=== PATIENT | female | born 1995 | race Caucasian/White ===

== ENCOUNTER 2016-09-04 01:26 | Emergency (ER) | payer OTHER ==
--- NOTE | 2016-09-04 01:56 | ED ---
Raul Shelby Michael, scribed for Kelvin Garza MD on 09/04/16 at 0136 . Altered Mental Status - HPI Summary HPI Summary: 20 y/o female was BIBA to the ED presenting with acute anxiety and panic attack that started tonight per EMS. The pt started having a panic attack in the library when her friend called EMS. She has been drinking caffeine, taking Adderall, and has not slept in 2 days per EMS. She also c/o visual hallucinations. The PMHx is significant for anxiety. - History Of Current Complaint Stated Complaint: POSS OVERDOSE Hx Obtained From: Patient, EMS, Medical Records Onset/Duration: Still Present Timing: Constant Severity Initially: Moderate Severity Currently: Moderate Aggravating Factor(s): Other - caffeine/decreased sleep Alleviating Factor(s): Nothing Associated Signs And Symptoms: Negative: Negative - panic attack, anxiey, visual hallucinations - Allergies/Home Medications Home Medications: Home Medications Escitalopram Oxalate [Lexapro] 15 mg PO DAILY 09/04/16 [History Confirmed ] Trazodone HCl 50 mg PO QAM PRN 09/04/16 [History Confirmed 09/04/16] PMH/Surg Hx/FS Hx/Imm Hx Psychiatric History: Reports: Hx Anxiety, Other Psychiatric Issues/Disorders - panic attacks - Family History Known Family History: Positive: Unknown - patient unable to note FHx - Social History Occupation: Student Lives: Alone Review of Systems Negative: Fever Positive: Anxious, Other - visual hallucinations All Other Systems Reviewed And Are Negative: Yes Physical Exam Triage Information Reviewed: Yes Vital Signs Reviewed: Yes Completion Of Physical Exam Limited Due To: Extremis Appearance: Positive: Well-Nourished - very restless Skin: Positive: Warm Eyes: Positive: MARIAELENA ENT: Positive: Hearing grossly normal Neck: Positive: Supple Respiratory/Lung Sounds: Positive: Breath Sounds Present Cardiovascular: Positive: RRR Abdomen Description: Positive: Nontender, Soft Musculoskeletal: Positive: Strength/ROM Intact Neurological: Positive: Sensory/Motor Intact Diagnostics - Laboratory Result Diagrams: 09/04/16 01:55 09/04/16 01:55 Lab Statement: Any lab studies that have been ordered have been reviewed, and results considered in the medical decision making process. Altered Mental Statu Course/Dx - Diagnoses Discharge Diagnoses: Anxiety Discharge - Discharge Plan Condition: Stable Disposition: HOME Prescriptions: traZODone TAB* [Desyrel TAB*] 100 mg PO BEDTIME #30 tab Referrals: [facility] Ramanian, [Primary Care Provider] - Additional Instructions: [facility]- [facility] Set up an appointment with Ro Tabor Phone Number: [phone] [facility]- Dr. Sainz [address] , [place] [address] Contact Fadia High- Retail Maintenance Technician to help with appointments and assignments for classes Phone number: [phone] The documentation as recorded by the Raul morrell Michael accurately reflects the service I personally performed and the decisions made by me, Kelvin Garza MD.
[2016-09-04] MEDS ORDERED: LORazepam TAB(*) 1 MG PO ONE (02:02)
[2016-09-04 02:14] LABS: Hematocrit 41 % (35-47); Hemoglobin 13.4 g/dl (12.0-16.0); Mean Corpuscular HGB Conc 33 g/dl (31-36); Mean Corpuscular Hemoglobin 25 pg (27-31); Mean Corpuscular Volume 77 fL (80-97); Mean Platelet Volume 10 um3 (7.4-10.4); Red Blood Count 5.35 10^6/ul (4.0-5.4); Red Cell Distribution Width 15 % (10.5-15); White Blood Count 12.1 10^3/ul (3.5-10.8)
[2016-09-04 02:16] LABS: Urine Bilirubin Negative (Negative); Urine Glucose Negative (Negative); Urine Nitrite Negative (Negative)
[2016-09-04 02:26] LABS: ALT 12 U/L (7-52); AST 17 U/L (13-39); Albumin 4.8 g/dL (3.2-5.2); Alkaline Phosphatase 99 U/L (34-104); Anion Gap 14 mmol/L (2-11); BUN/Creatinine Ratio 17.1 (8-20); Blood Urea Nitrogen 12 mg/dL (6-24); CO2 Carbon Dioxide 18 mmol/L (22-32); Calcium 10.1 mg/dL (8.6-10.3); Chloride 105 mmol/L (101-111); EGFR African American 137.2 (>60); EGFR Non-African American 106.7 (>60); Globulin 3.4 g/dL (2-4); Glucose 126 mg/dL (70-100); Potassium 2.8 mmol/L (3.5-5.0); Sodium 137 mmol/L (133-145); Total Protein 8.2 g/dL (6.4-8.9)
[2016-09-04 02:28] LABS: Benzodiazepine Urine Screen None Detected (None Detect)
[2016-09-04 02:36] LABS: Acetaminophen < 15 mcg/mL; Alcohol < 10 mg/dL (<10); Salicylate < 2.50 mg/dL (<30)
[2016-09-04 02:46] LABS: TSH (Thyroid Stimulating Horm) 2.49 mcIU/mL (0.34-5.60)
[2016-09-04] MEDS ORDERED: diPHENhydraMINE PO* 25 MG ONE (05:36)
[2016-09-04] MEDS ORDERED: diPHENhydraMINE PO* 25 MG PO ONE (05:39)
[2016-09-04 07:47] VITALS: BP 108/74
--- NOTE | 2016-09-04 11:48 | PN ---
Progress Note - Progress Note Note: S: Patient seen and examined. Please refer to evaluation for full history. 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 She c/o chronic SI since age 13 but denies current intent or plan. Patient not sleeping well despite treatment at [facility] with escitalopram 15mg and trazodone 50mg nightly. Patient feels safe to go home and f/u with [facility]. Friend, Vivienne, is present and willing to provide supervision and support. O: calm and cooperative, denies active SI A/P: Recurrent MDD: will increase trazodone to 100mg PO qhs and phone in supply to [facility]. Patient to f/u with Dr. Sainz and therapist Ro Tabor at [facility]. Patient encouraged to return to hospital if SI becomes active.
== END 2016-09-04 12:35 | disposition home or self-care (01) ==
LOC: ED 01:26
DX: F41.9 Anxiety disorder, unspecified (principal); R44.1 Visual hallucinations
CPT/HCPCS: 36415; 80053; 80307; 80320; 80329; 81003; 84443; 84702; 85025; 99284; A9270-GY; G0480

== ENCOUNTER 2016-09-21 07:18 | Emergency (ER) | payer OTHER ==
[2016-09-21 07:35] VITALS: BP 97/63
--- NOTE | 2016-09-21 07:57 | UC ---
Throat Pain/Nasal Alden HPI - HPI Summary HPI Summary: The patient comes in today for: 1. Sore throat: Onset: 2 days. Palliative/provocative: swallowing makes it worse. "Pain killers" taken and they helped. Quality: Scratchy sensation. Region: Right side of the throat to the right ear. Severity: 5/10 Time: Constant. Associated symptoms: Fevers: 101.5 yesterday. Rhinitis: None. Cough: "a little," non-productive. * - History of Current Complaint Chief Complaint: UCRespiratory Stated Complaint: FEVER, THROAT PAIN Time Seen by Provider: 09/21/16 07:37 Hx Obtained From: Patient Hx Last Menstrual Period: 09/14/16 - Allergies/Home Medications Allergies/Adverse Reactions: Allergies Allergy/AdvReac Type Severity Reaction Status Date / Time No Known Allergies Allergy Verified 09/21/16 07:35 Home Medications: Home Medications Drospirenone-Ethinyl Estradiol [Ruthie 3-0.02 mg] 09/21/16 [History] Escitalopram Oxalate [Lexapro 20 mg] 09/21/16 [History] PMH/Surg Hx/FS Hx/Imm Hx Previously Healthy: No - Family planning/BCP Endocrine History Of: Denies: Diabetes, Thyroid Disease, Hyperthyroidism, Hypothyroidism, Dyslipidemia Cardiovascular History Of: Denies: Cardiac Disorders, Hypertension, Pacemaker/ICD, Myocardial Infarction , Congestive Heart Failure, Atrial Fibrillation, Deep Vein Thrombosis, Bleeding Disorders Respiratory History Of: Denies: COPD, Asthma, Bronchitis, Pneumonia, Pulmonary Embolism GI/ History Of: Denies: Gastroesophageal Reflux, Ulcer, Gastrointestinal Bleed, Gall Bladder Disease, Kidney Stones, Diverticulitis, Renal Disease, Urosepsis Neurological History Of: Denies: TIA, CVA, Dementia, Seizures, Migraine Psychological History Of: Reports: Depression Denies: Anxiety, Bipolar Disorder, Schizophrenia, Post Traumatic Stress Disorder Cancer History Of: Denies: Lung Cancer, Colorectal Cancer, Breast Cancer, Prostate Cancer, Cervical Cancer Other History Of: Negative For: HIV, Hepatitis B, Hepatitis C, Anticoagulant Therapy - Surgical History Surgical History: Yes Surgery Procedure, Year, and Place: appendix - Family History Known Family History: Negative: Cardiac Disease, Hypertension - Social History Occupation: Student Alcohol Use: Occasionally Substance Use Type: None Smoking Status (MU): Smoker, Current Status Unknown Type: Cigarettes Household Exposure Type: Cigarettes Review of Systems Constitutional: Fever Skin: Negative Eyes: Negative ENT: Sore Throat Respiratory: Negative Cardiovascular: Negative Gastrointestinal: Negative Genitourinary: Negative Motor: Decreased ROM All Other Systems Reviewed And Are Negative: Yes Physical Exam Triage Information Reviewed: Yes Appearance: Well-Appearing, No Pain Distress, Well-Nourished Vital Signs: Initial Vital Signs Temp 99 F 09/21/16 07:27 Pulse 87 09/21/16 07:27 Resp 16 09/21/16 07:27 BP 97/63 09/21/16 07:27 Pulse Ox 99 09/21/16 07:27 Eye Exam: Normal Eyes: Positive: Conjunctiva Clear. Negative: Discharge ENT: Positive: Pharyngeal erythema - Right tonsil is red and there is a thin exudate on it., Tonsillar exudate. Negative: TM bulging, TM dull, TM red, Tonsillar swelling Dental: Negative: Gross Decay/Caries @, Dental Fracture @ Neck: Positive: Supple, Nontender, No Lymphadenopathy. Negative: Nuchal Rigidity Respiratory: Positive: Lungs clear, No respiratory distress, No accessory muscle use. Negative: Crackles, Wheezing Cardiovascular: Positive: RRR, No Murmur Abdomen Description: Positive: Nontender, No Organomegaly, Soft Musculoskeletal: Positive: Strength Intact, ROM Intact, No Edema Psychological: Positive: Age Appropriate Behavior, Consolable Skin: Negative: rashes, breakdown Diagnostics - Laboratory Diagnostic Studies Completed/Ordered: Strep test: (-) Throat Pain/Nasal Course/Dx - Course Course Of Treatment: Patient was told that even though we were told that this strep test was normal, I've heard recent reports that there have been positive throat cultures after a negative strep. She was told of her diagnositic options. She wants what is ordered. - Differential Dx/Diagnosis Differential Diagnosis/HQI/PQRI: Laryngitis, Pharyngitis, Sinusitis Provider Diagnoses: pharyngitis Discharge - Discharge Plan Condition: Stable Disposition: HOME Patient Education Materials: Pharyngitis (ED) Referrals: [facility] [place] [facility]ERR[facility] [Outside] Additional Instructions: Please see your primary care provider in about a week to see how well you are doing. If you don't have a primary care provider, please contact the physician referral service. If you can't get in timely, please you may come back to see us until you can. If you get worse, please be seen sooner by us or the ER. Use the viscous lidocaine, and [id number] anti-inflammatory medication such as Advil for pain relief.
[2016-09-21 13:43] LABS: EBV Response YES
[2016-09-21 14:10] LABS: Manual Entry Verification HAN0055
[2016-09-21 14:15] LABS: Mono Internal Control QC Line Present
[2016-09-23 14:17] LABS: EBV Capsid Ag IgG Ab Negative (Negative); EBV Capsid Ag IgM Ab Negative (Negative)
--- NOTE | 2016-09-23 15:32 | UC ---
Progress - Progress Note Progress Note: The patient was called and told of the negative mononucleosis and the negative throat culture. She states that she is feeling better. She was told that since she is feeling better, there is nothing more that needs to be done. If she does not continue to do well, she is to be seen again by her PCP or us.
== END 2016-09-21 08:22 | disposition home or self-care (01) ==
LOC: MERGE 07:18 → UCEAST 07:18
DX: J02.9 Acute pharyngitis, unspecified (principal); F32.9 Major depressive disorder, single episode, unspecified; Z72.0 Tobacco use
CPT/HCPCS: 36415; 86308; 86664; 86665; 87070; 87651; 99201; G0463